=== PATIENT | male | born 1990 | race Caucasian/White ===

== ENCOUNTER 2017-10-21 18:31 | Emergency (ER) | payer OTHER ==
[~2017-10-21] VITALS: Ht 177.8 cm; Wt 83.9 kg
[2017-10-21 18:40] VITALS: Ht 177.8 cm; Wt 83.9 kg
[2017-10-21 20:04] LABS: BASOPHIL % 0.2 % (0-2); PLATELET COUNT 391 x10^3mcL (130-400); RED CELL DISTRIBUTION WIDTH 13.6 % (11.5-14.5)
[2017-10-21 20:06] LABS: CALCIUM 9.7 mg/dL (8.5-10.1); CARBON DIOXIDE 28.4 mmol/L (21-32); CHLORIDE SERUM 104 mmol/L (98-107); CREATININE SERUM 0.9 mg/dL (0.7-1.3); GFR1 > 60 mL/min; GLUCOSE SERUM 95 mg/dL (74-106); POTASSIUM SERUM 4.2 mmol/L (3.5-5.1); SODIUM SERUM 142 mmol/L (136-145)
[2017-10-21 20:11] LABS: ALBUMIN 4.2 g/dL (3.4-5.0); ALKALINE PHOSPHATASE 124 U/L (46-116); ALT/SGPT 356 U/L (16-63); AST/SGOT 118 U/L (15-37); BILIRUBIN TOTAL 0.8 mg/dL (0.20-1.00); TOTAL PROTEIN, SERUM 9.1 g/dL (6.4-8.2)
[2017-10-21 21:12] VITALS: BP 108/51
== END 2017-10-21 21:12 | disposition home or self-care (01) ==
LOC: ED 18:31
PROVIDERS: Specialist
DX: T67.5XXA Heat exhaustion, unspecified, initial encounter (principal); F11.20 Opioid dependence, uncomplicated; X58.XXXA Exposure to other specified factors, initial encounter; Y93.89 Activity, other specified; Y92.89 Other specified places as the place of occurrence of the external cause; Y99.8 Other external cause status
CPT/HCPCS: G0480; J7030; Q0092